=== PATIENT | female | born 1980 | race Caucasian/White ===

== ENCOUNTER 2016-11-13 10:04 | Emergency (ER) | payer OTHER, BC ==
[~2016-11-13] VITALS: Ht 167.6 cm; Wt 83.6 kg
[~2016-11-13 10:04] MED LIST: ADALAT CC30 MG PO; BENADRYL25 M2 PO; MEDROL 4MG DOSPA4 MG PO; MOTRIN 800800 MG/TAB PO; PERCOCET 325 MG1 TA2 PO; PRENATAL1 TA7 PO; PRILOSEC10 MG PO; PROCARDIA XL 3030 MG PO
[2016-11-13 10:10] VITALS: BP 150/91; PULSE 97; TEMP 98.8
[2016-11-13] MEDS ORDERED: PRILOSEC 20MG20 MG (11:00)
[2016-11-13] MEDS ORDERED: ADIPEX-P37.5 MG PO (11:01)
[2016-11-13] MEDS ORDERED: ALLERY PO (11:02)
[2016-11-13] MEDS ORDERED: SINUS PO (11:02)
[2016-11-13] MEDS ORDERED: NORCO 325 MG-51 TAB PO (11:44)
[2016-11-13] MEDS ORDERED: CRUTCHES MC (11:44)
== END 2016-11-13 12:40 | disposition home or self-care (01) ==
LOC: COL.ER 10:04
DX: S82.64XA Nondisplaced fracture of lateral malleolus of right fibula, initial encounter for closed fracture (principal); W17.89XA Other fall from one level to another, initial encounter; Y92.524 Gas station as the place of occurrence of the external cause

== ENCOUNTER → 2017-10-05 | Outpatient (CLI) | payer BC ==
[~2017-10-05] MED LIST changes: +ADIPEX-P37.5 MG PO; +ALLERY PO; +CRUTCHES MC; +NORCO 325 MG-51 TAB PO; +PRILOSEC 20MG20 MG; +SINUS PO
== END ==
LOC: COL.RAD 07:53
DX: K30 Functional dyspepsia (principal); K31.84 Gastroparesis; K21.9 Gastro-esophageal reflux disease without esophagitis
CPT/HCPCS: A9541

== ENCOUNTER 2017-10-13 11:45 | Day surgery (SDC) | payer BC ==
[~2017-10-13] VITALS: Ht 167.6 cm; Wt 82.6 kg
[~2017-10-13 11:45] MED LIST changes: +PRIL40 PO; -PRILOSEC 20MG20 MG
[2017-10-13] MEDS ORDERED: MEDROL 4MG DOSPA4 MG PO (12:44)
[2017-10-13] MEDS ORDERED: AMOXICILLIN 8751 TAB PO (12:44)
[2017-10-13] MEDS ORDERED: DEPO-PROVER150 MG/M1 IM (12:45)
[2017-10-13] MEDS ORDERED: [UNRECOGNIZED DRUG - REMARK] PO (12:52)
[2017-10-13] MEDS ORDERED: EPIPEN 2-PAK1 MG/ML IM (12:54)
[2017-10-13 13:12] VITALS: BP 127/86; PULSE 78; TEMP 98
[2017-10-13 15:15] VITALS: BP 117/91; PULSE 78; TEMP 97.7
[2017-10-13 15:30] VITALS: BP 127/104; PULSE 89
[2017-10-13 15:45] VITALS: BP 122/87; PULSE 73
[2017-10-13 16:00] VITALS: BP 123/86; PULSE 75
== END 2017-10-13 16:10 | disposition home or self-care (01) ==
LOC: SDCO 11:45
DX: K21.9 Gastro-esophageal reflux disease without esophagitis (principal); K31.84 Gastroparesis; R03.0 Elevated blood-pressure reading, without diagnosis of hypertension; K64.9 Unspecified hemorrhoids; E66.9 Obesity, unspecified; R68.81 Early satiety; Z88.1 Allergy status to other antibiotic agents; Z90.49 Acquired absence of other specified parts of digestive tract; Z68.29 Body mass index [BMI] 29.0-29.9, adult; Z87.891 Personal history of nicotine dependence
CPT/HCPCS: J2250; J3010; J7030

== ENCOUNTER → 2018-12-12 | Outpatient (CLI) | payer BC ==
[~2018-12-12] MED LIST changes: +AMOXICILLIN 8751 TAB PO; +DEPO-PROVER150 MG/M1 IM; +EPIPEN 2-PAK1 MG/ML IM; +[UNRECOGNIZED DRUG - REMARK] PO
[2018-12-12 12:51] LABS: HEMATOCRIT 41.5 % (37.0-47.0); HEMOGLOBIN 14.5 g/dl (12.5-16.0); MEAN CELL VOLUME 88 fl (80.0-100.0); MEAN CORPUSCULAR HEMOGLOBIN 31 pg (27.0-31.0); MEAN CORPUSCULAR HGB CONC 35 g/dl (33.0-37.0); MEAN PLATELET VOLUME 10.4 fl (7.4-10.4); PLATELET COUNT 304 K/mm3 (130-400); RED BLOOD COUNT 4.73 M/mm3 (4.10-5.30); REDCELL DISTRIBUTION WIDTH-CV 12.3 % (11.5-14.5)
[2018-12-12 13:23] LABS: ERYTHROCYTE SEDIMENTATION RATE 13 mm/hr (0-20)
== END ==
LOC: COL.LAB 12:14
PROVIDERS: Orthopaedic Surgery Sports Medicine
DX: M25.531 Pain in right wrist (principal)

== ENCOUNTER → 2018-12-20 | Outpatient (CLI) | payer BC ==
[2018-12-20 22:50] LABS: RHEUMATOID FACTOR-SCREEN <15 IU/mL (0-29)
== END ==
LOC: COL.LAB 09:28
PROVIDERS: Orthopaedic Surgery Sports Medicine
DX: M25.531 Pain in right wrist (principal)

== ENCOUNTER → 2019-04-15 | Outpatient (CLI) | payer BC | LOC: COL.LAB 17:09 | DX: M25.531 Pain in right wrist (principal) ==

== ENCOUNTER 2019-08-04 17:39 | Emergency (ER) | payer BC ==
[~2019-08-04] VITALS: Ht 167.6 cm; Wt 73.6 kg
[2019-08-04] MEDS ORDERED: CLEOCIN HC150 MG/CAP PO (19:50)
[2019-08-04 20:24] VITALS: BP 132/86; PULSE 98; TEMP 98.6
== END 2019-08-04 20:19 | disposition home or self-care (01) ==
LOC: COL.ER 17:39
DX: G89.18 Other acute postprocedural pain (principal); L76.22 Postprocedural hemorrhage of skin and subcutaneous tissue following other procedure; M79.631 Pain in right forearm

== ENCOUNTER → 2022-01-11 | Outpatient (CLI) | payer BC ==
[~2022-01-11] MED LIST changes: +CLEOCIN HC150 MG/CAP PO
== END ==
LOC: MC.RAD 11:09
DX: Z12.31 Encounter for screening mammogram for malignant neoplasm of breast (principal)

== ENCOUNTER → 2024-05-09 | Outpatient (CLI) | payer BC | LOC: MC.RAD 11:30 | DX: Z12.31 Encounter for screening mammogram for malignant neoplasm of breast (principal) ==